=== PATIENT | female | born 1985 | race Caucasian/White ===

== ENCOUNTER 2017-03-09 11:35 | Emergency (ER) | payer MEDICAID ==
[2017-03-09] MEDS ORDERED: Ketorolac 60 MG/2 ML SDV IM ONE (12:05)
--- NOTE | 2017-03-09 12:12 | EDM.PDOC ---
ED HPI GENERAL MEDICAL PROBLEM - General Chief Complaint: Abdominal Pain Stated Complaint: ABD PAIN Time Seen by Provider: 03/09/17 11:50 Source of Information: Reports: Patient History Limitations: Reports: No Limitations - History of Present Illness INITIAL COMMENTS - FREE TEXT/NARRATIVE: c/o L flank cramping daily x 3w usually last 2-3 min felt fine on awakening at 8 AM, no bfast, ate lasagna at 10 AM, developed cramping, took no meds has had some nausea loose BM x 3 daily x 3w inc'd cramps after eating, dec'd after BM eating less no menses x months, has Mirena no previous GI problems occurs day and night works cleaning, works at night, did not work last night will sit down waiting for cramps to pass, has cramps now - Related Data Allergies Allergy/AdvReac Type Severity Reaction Status Date / Time Penicillins Allergy Rash Verified 03/09/17 12:04 Home Meds: Home Meds NK [No Known Home Meds] 03/09/17 [History] ED ROS GENERAL - Review of Systems Review Of Systems: See Below Constitutional: Reports: No Symptoms HEENT: Reports: No Symptoms Respiratory: Reports: No Symptoms Cardiovascular: Reports: No Symptoms Endocrine: Reports: No Symptoms GI/Abdominal: Reports: Abdominal Pain, Nausea : Reports: No Symptoms Musculoskeletal: Reports: No Symptoms Skin: Reports: No Symptoms Neurological: Reports: No Symptoms Psychiatric: Reports: No Symptoms Hematologic/Lymphatic: Reports: No Symptoms Immunologic: Reports: No Symptoms ED EXAM, GI/ABD - Physical Exam Exam: See Below Exam Limited By: No Limitations General Appearance: Alert, WD/WN, Mild Distress, Other (sitting a little awkwardly in chair, leans to R, nonill, nontoxic) Nose: Normal Inspection Throat/Mouth: Normal Inspection, Normal Voice, No Airway Compromise Head: Atraumatic, Normocephalic Neck: Normal Inspection, Supple, Non-Tender Respiratory/Chest: No Respiratory Distress, Lungs Clear, Normal Breath Sounds, No Accessory Muscle Use, Chest Non-Tender Cardiovascular: Regular Rate, Rhythm, No Edema, No Gallop, No JVD GI/Abdominal Exam: Normal Bowel Sounds, Soft, Other (obese, mild distention, mild tender along transverse colon and L colon, no true flank tender, no guard, no rebound, no CVAT, nl BS x 4) Back Exam: Normal Inspection, Full Range of Motion, NT Extremities: Normal Inspection, Normal Range of Motion, Non-Tender, No Pedal Edema Neurological: Alert, Oriented, CN II-XII Intact, No Motor/Sensory Deficits Psychiatric: Normal Affect, Normal Mood Skin Exam: Warm, Dry, Intact, Normal Color, No Rash Lymphatic: No Adenopathy Course - Vital Signs Last Recorded V/S: Last Vital Signs Temp 36.8 C 03/09/17 12:05 Pulse 102 H 03/09/17 12:05 Resp 18 03/09/17 12:05 BP 118/91 H 03/09/17 12:05 Pulse Ox 98 03/09/17 12:05 - Orders/Labs/Meds Orders: Active Orders 24 hr Category Date Time Status Abdomen 2V AP Flat Upright [CR] Stat Exams 03/09/17 12:05 Taken LIPASE [REF] Stat Lab 03/09/17 12:27 Received Labs: Laboratory Tests 03/09/17 03/09/17 03/09/17 Range/Units 11:51 12:20 12:20 WBC (4.5-12.0) X10-3/uL RBC (3.23-5.20) x10(6)uL Hgb (11.5-15.5) g/dL Hct (30.0-51.3) % MCV (80-96) fL MCH (27.7-33.6) pg MCHC (32.2-35.4) g/dL RDW (11.5-15.5) % Plt Count (125-369) X10(3)uL MPV (7.4-10.4) fL Neut % (Auto) (46-82) % Lymph % (Auto) (13-37) % [place] % (Auto) (4-12) % Eos % (Auto) (1.0-5.0) % Baso % (Auto) (0-2) % Neut # (Auto) (1.6-8.3) # Lymph # (Auto) (0.6-5.0) # [place] # (Auto) (0.0-1.3) # Eos # (Auto) (0.0-0.8) # Baso # (Auto) (0.0-0.2) # Sodium (135-145) mmol/L Potassium (3.5-5.3) mmol/L Chloride (100-110) mmol/L Carbon Dioxide (23-29) mmol/L BUN (5-20) mg/dL Creatinine (0.6-1.3) mg/dL Est Cr Clr Drug Dosing Estimated GFR (MDRD) (>60) BUN/Creatinine Ratio (9-20) Glucose (80-116) mg/dL POC Glucose 95 (80-116) mg/dL Calcium (8.6-10.2) mg/dL Total Bilirubin (0.1-1.3) mg/dL AST (5-27) IU/L ALT (14-26) IU/L Alkaline Phosphatase (56-112) IU/L C-Reactive Protein (0.0-1.0) mg/dL Total Protein (6.0-8.0) g/dL Albumin (3.5-5.2) g/dL Globulin g/dL Albumin/Globulin Ratio Urine Color Yellow (YELLOW) Urine Appearance Slightly cloudy (CLEAR) Urine pH 7.0 H (5.0-6.5) Ur Specific [place] 1.015 (1.010-1.025) Urine Protein Negative (NEGATIVE) mg/dL Urine Glucose (UA) Normal (NEGATIVE) mg/dL Urine Ketones Negative (NEGATIVE) mg/dL Urine Occult Blood Negative (NEGATIVE) Urine Nitrite Negative (NEGATIVE) Urine Bilirubin Negative (NEGATIVE) Urine Urobilinogen Normal (NEGATIVE) mg/dL Ur Leukocyte Esterase Negative (NEGATIVE) Urine RBC Not seen (0) Urine WBC 0-5 (0) Ur Squamous Epith Cells Many H (NS,R,O) Amorphous Sediment Moderate Urine Bacteria Few H (NS) Urine HCG, Qual Negative (NEGATIVE) 03/09/17 03/09/17 Range/Units 12:27 12:27 WBC 8.6 (4.5-12.0) X10-3/uL RBC 4.81 (3.23-5.20) x10(6)uL Hgb 14.9 (11.5-15.5) g/dL Hct 43.9 (30.0-51.3) % MCV 91.2 (80-96) fL MCH 31.0 (27.7-33.6) pg MCHC 34.0 (32.2-35.4) g/dL RDW 12.1 (11.5-15.5) % Plt Count 345 (125-369) X10(3)uL MPV 8.9 (7.4-10.4) fL Neut % (Auto) 73.0 (46-82) % Lymph % (Auto) 19.0 (13-37) % [place] % (Auto) 6.5 (4-12) % Eos % (Auto) 1 (1.0-5.0) % Baso % (Auto) 1 (0-2) % Neut # (Auto) 6.2 (1.6-8.3) # Lymph # (Auto) 1.6 (0.6-5.0) # [place] # (Auto) 0.6 (0.0-1.3) # Eos # (Auto) 0.1 (0.0-0.8) # Baso # (Auto) 0.1 (0.0-0.2) # Sodium 140 (135-145) mmol/L Potassium 4.0 (3.5-5.3) mmol/L Chloride 105 (100-110) mmol/L Carbon Dioxide 27 (23-29) mmol/L BUN 11 (5-20) mg/dL Creatinine 0.8 (0.6-1.3) mg/dL Est Cr Clr Drug Dosing TNP Estimated GFR (MDRD) > 60 (>60) BUN/Creatinine Ratio 13.8 (9-20) Glucose 109 (80-116) mg/dL POC Glucose (80-116) mg/dL Calcium 9.3 (8.6-10.2) mg/dL Total Bilirubin 0.6 (0.1-1.3) mg/dL AST 20 (5-27) IU/L ALT 18 (14-26) IU/L Alkaline Phosphatase 85 (56-112) IU/L C-Reactive Protein 0.7 (0.0-1.0) mg/dL Total Protein 7.9 (6.0-8.0) g/dL Albumin 4.1 (3.5-5.2) g/dL Globulin 3.8 g/dL Albumin/Globulin Ratio 1.1 Urine Color (YELLOW) Urine Appearance (CLEAR) Urine pH (5.0-6.5) Ur Specific [place] (1.010-1.025) Urine Protein (NEGATIVE) mg/dL Urine Glucose (UA) (NEGATIVE) mg/dL Urine Ketones (NEGATIVE) mg/dL Urine Occult Blood (NEGATIVE) Urine Nitrite (NEGATIVE) Urine Bilirubin (NEGATIVE) Urine Urobilinogen (NEGATIVE) mg/dL Ur Leukocyte Esterase (NEGATIVE) Urine RBC (0) Urine WBC (0) Ur Squamous Epith Cells (NS,R,O) Amorphous Sediment Urine Bacteria (NS) Urine HCG, Qual (NEGATIVE) Meds: Medications Discontinued Medications Generic Name Dose Route Start Last Admin Trade Name Joyce PRN Reason Stop Dose Admin Ketorolac Tromethamine 60 mg 03/09/17 12:05 03/09/17 12:18 Toradol IM 03/09/17 12:06 60 mg ONETIME ONE Administration - Re-Assessments/Exams Free Text/Narrative Re-Assessment/Exam: 03/09/17 13:13 w/u is neg, KUB shows some stool in R and L colon, hx c/o colon spasm from obstipation, should respond well to bowel cleanout, however cannot exclude colitis and pt may need a colonoscopy if sxs persist. No work scheduled until tomorrow PM. PCP is Dr Miller. Departure - Departure Time of Disposition: 13:16 Disposition: Home, Self-Care 01 Condition: Good Clinical Impression: Obstipation, Spasm of colon - Discharge Information Instructions: Constipation, Adult, [id number] Referrals: Dk Miller MD [Primary Care Provider] - Forms: ED Department Discharge Additional Instructions: For pain and cramping, take ibuprofen 200 mg 3 tabs with meals and bedtime for 2 days. To clean out the colon, drink a 10-ounce bottle of magnesium citrate when you get home. Drink a 2nd bottle in 6 hours. Eat a high fiber diet. See your doctor in 2 days. Call your Physician or Return to Emergency Department if: * Your condition worsens in any way. * You develop fever greater than 100.4. * You have vomitting that does not stop with medications. * You have pain that is not controlled with medications. - My Orders Last 24 Hours: My Active Orders 03/09/17 12:05 Abdomen 2V AP Flat Upright [CR] Stat 03/09/17 12:27 LIPASE [REF] Stat - Assessment/Plan Last 24 Hours: My Active Orders 03/09/17 12:05 Abdomen 2V AP Flat Upright [CR] Stat 03/09/17 12:27 LIPASE [REF] Stat
--- NOTE | 2017-03-10 10:50 | CR ---
INDICATION: Left flank pain times two weeks, question obstipation. ABDOMEN: Four images of the abdomen in supine and upright projections revealed evidence of previous cholecystectomy with clips along the right lobe of the liver edge and near the cystic duct area. An intrauterine device is noted near the midline but tilted to the left. What appear to be hypertrophic degenerative changes are noted at the upper sacrum on the left. Spina bifida occulta is noted at L5. The pattern of gas and feces is nonspecific without evidence of obstruction, excessive stool, or free air. No definite organomegaly or mass lesions were identified. IMPRESSION: 1. Nonacute abdomen. 2. Post cholecystectomy. 3. IUD just to the left of midline in the mid pelvis. 4. Slight tilt of the spine to the left with minimal dextroconcave scoliosis lower middle lumbar spine. MTDD
== END 2017-03-09 13:20 | disposition home or self-care (01) ==
LOC: FB.ED 11:35
DX: K58.1 Irritable bowel syndrome with constipation (principal); K59.00 Constipation, unspecified; Z88.0 Allergy status to penicillin
CPT/HCPCS: 36415; 74020; 80053; 81001; 81025; 82962; 83690; 85025; 86140; 96372; 99283; J1885

== ENCOUNTER 2019-03-02 21:13 | Emergency (ER) | payer MEDICAID ==
[2019-03-02] MEDS ORDERED: Ketorolac 60 MG/2 ML SDV IM ONE (21:33)
[2019-03-02] MEDS ORDERED: levETIRAcetam 500 MG Tab PO ONE (21:33)
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
== END 2019-03-02 23:25 | disposition home or self-care (01) ==
LOC: FB.ED 21:13
DX: G40.909 Epilepsy, unspecified, not intractable, without status epilepticus (principal); S50.812A Abrasion of left forearm, initial encounter; Z88.0 Allergy status to penicillin; Z60.8 Other problems related to social environment; X78.9XXA Intentional self-harm by unspecified sharp object, initial encounter
CPT/HCPCS: 36415; 80053; 85025; 96372; 99283; A9270-GY; J1885